=== PATIENT | female | born 1980 | race Asian ===

== ENCOUNTER 2018-06-05 07:50 | Emergency (ER) | payer OTHER, MEDICAID ==
[2018-06-05] MEDS: DIPHENHYDRAMINE 50 MG INJ IM (08:56)
[2018-06-05] MEDS: DEXAMETHASONE 10 MG/ML 1 ML INJ IM (08:56)
== END 2018-06-05 09:15 | disposition home or self-care (01) ==
LOC: FTE 07:50
DX: L25.9 Unspecified contact dermatitis, unspecified cause (principal)
CPT/HCPCS: 96372; 99284-25

== ENCOUNTER 2018-06-08 07:46 | Emergency (ER) | payer OTHER, MEDICAID | END 2018-06-08 08:50 | disposition home or self-care (01) | LOC: FTE 07:46 | DX: L24.3 Irritant contact dermatitis due to cosmetics (principal) | CPT/HCPCS: 99283; 99283-25 ==

== ENCOUNTER 2018-06-09 04:30 | Emergency (ER) | payer OTHER, MEDICAID ==
[2018-06-09] MEDS: predniSONE 20 MG TAB PO (05:55)
[2018-06-09] MEDS: FAMOTIDINE 20 MG TAB PO (05:55)
[2018-06-09] MEDS: DIPHENHYDRAMINE 50 MG CAP PO (05:55)
== END 2018-06-09 06:50 | disposition home or self-care (01) ==
LOC: FTE 04:30
DX: L24.5 Irritant contact dermatitis due to other chemical products (principal)
CPT/HCPCS: 99283